=== PATIENT | female | born 1995 | race Caucasian/White ===

== ENCOUNTER 2016-07-26 09:18 | Emergency (ER) | payer BC, OTHER, MEDICAID ==
[2016-07-26] MEDS ORDERED: NAPROXEN 250 MG TAB As Ordered ONE (09:59)
[2016-07-26 10:01] LABS: CONTROL LINE UCG INT CTR LINE PRESENT
--- NOTE | 2016-07-26 10:33 | EDDOCDS ---
Physician Documentation [facility] Name: July Cooper Age: 21 yrs Sex: Female : 1995 Arrival Date: 07/26/2016 Time: 09:18 Bed PR Private MD: No Pcp Disposition: 07/26/16 10:17 Discharged to Home/Self Care. Impression: Candidiasis of vulva and vagina, Vaginitis, vulvitis and vulvovaginitis in diseases classified elsewhere - BV, Acute upper respiratory infections of multiple and unspecified sites. - Condition is Stable. - Discharge Instructions: Bacterial Vaginosis, Upper Respiratory Infection, Adult, Vaginitis, Monilial. - Prescriptions for tinidazole 500 mg Oral tablet - take 2 tablet by ORAL route once daily for 5 days; 10 tablet. Diflucan 150 mg Oral Tablet - take 1 tablet by ORAL route one time for 1 day; 1 tablet. Guaifenesin- DM 10-100 mg/5 mL Oral Liquid - take 5 milliliter by ORAL route every 4 hours As needed; 100 milliliter. - Medication Reconciliation, Local Pharmacy Hours form. - Follow up: Your [employer]; When: Call to arrange an appointment; Reason: Wound/Symptom Recheck, Recheck today's complaints, Worsening of conditions, Continuance of care. - Problem is chronic. - Symptoms are unchanged. Historical: - Allergies: no known allergies; - Home Meds: 1. clindamycin HCl 300 mg Oral cap 1 cap 2 times per day (Last dose: 07/25/2016) 2. Valtrex 500 mg Oral tab prn (Last dose: 07/25/2016) - PMHx: bacterial vaginosis; Herpes; - PSHx: none; - Social history: Smoking status: Patient uses tobacco products, current every day smoker. No barriers to communication noted, The patient speaks fluent South Korean. - Family history: Not pertinent. - : The pt / caregiver states he / she is not on anticoagulants. Home medication list is obtained from the patient. - Exposure Risk Screening:: None identified. 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 5 in. (165.10 cm) (R); Pain 01/05; 09:20 Body Mass Index 40.77 (111.13 kg, 165.10 cm) elp MDM: 09:31 Financial registration complete. lg 09:39 [facility] Payment Agreement was scanned into [employer] and attached to record. lg 09:40 Set up pelvic ordered. cc10 09:40 Undress patient appropriately for examination ordered. cc10 09:41 UA Ordered. EDMS 09:41 UCG- In Lab Ordered. EDMS 09:41 GC & Chlamydia Amplification Ordered. EDMS 09:41 Wet Prep Ordered. EDMS 09:50 Naproxen 500 mg PO once; administer with food or milk ordered. cc10 10:05 UCG- In Lab Reviewed. cc10 10:05 Wet Prep Reviewed. cc10 10:09 UA Reviewed. cc10 10:09 UCG- In Lab Reviewed. cc10 Administered Medications: 10:00 Drug: Naproxen 500 mg [naproxen 250 mg tablet (2 tabs)] Route: PO; hs1 Signatures: Dispatcher [employer] EDFL Romero Pritchard, Reg Reg lg Nancy Peters, RN RN jodiejErnestine Guzman RN RN hs1 Roshan Thomas PA-C PA-C cc10 The chart was reviewed and I authenticate all verbal orders and agree with the evaluation and treatment provided.Attachments: 09:39 [facility] Payment Agreement lg MTDD
--- NOTE | 2016-07-26 10:33 | EDDOCDS ---
Nurse's Notes [facility] Name: July Cooper Age: 21 yrs Sex: Female : 1995 Arrival Date: 07/26/2016 Time: 09:18 Bed PR Private MD: No Pcp Diagnosis: Candidiasis of vulva and vagina;Vaginitis, vulvitis and vulvovaginitis in diseases classified elsewhere-BV;Acute upper respiratory infections of multiple and unspecified sites Presentation: 07/26 09:22 Presenting complaint: Patient states: nasal congestion for past week, intermittent jjr pelvic pain for past week, dysuria with left low back discomfort. Adult Sepsis Screening: The patient does not have new or worsening altered mentation. Patient's respiratory rate is less than 22. Systolic blood pressure is greater than 100. Patient has a qSOFA score of 0- Negative Sepsis Screen. Suicide/Homicide risk assessment- the patient denies having any suicidal and/or homicidal ideations and does not present with any other emotional, behavioral or mental health complaints. Status: Patient is not a family service caseworker or dependent. Transition of care: patient was not received from another setting of care. 09:22 Acuity: LLUVIA Level 3 jjr 09:22 Method Of Arrival: Walkin/Carried/Asstd jjr Triage Assessment: 09:26 General: Appears in no apparent distress. Pain: Location: left low back and pelvis. HIV jjr screening NA for this visit Offered previously. 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 clindamycin HCl 300 mg Oral cap 1 cap 2 times per day (Last dose: 07/25/2016) 2. Valtrex 500 mg Oral tab prn (Last dose: 07/25/2016) - PMHx: bacterial vaginosis; Herpes; - PSHx: none; - Social history: Smoking status: Patient uses tobacco products, current every day smoker. No barriers to communication noted, The patient speaks fluent Lithuanian. - Family history: Not pertinent. - : The pt / caregiver states he / she is not on anticoagulants. Home medication list is obtained from the patient. - Exposure Risk Screening:: None identified. Screenin:29 Screening information is obtained from the patient. Fall risk: No risks identified. hs1 Assistance ADL's: requires no assistance with activities of daily living. Abuse/DV Screen: The patient / caregiver reports he/she is: not in a situation that causes fear, pain or injury. Nutritional screening: No deficits noted. Advance Directives: There is no active DNR order. home support is adequate. Assessment: 10:30 General: Appears in no apparent distress, Behavior is appropriate for age, cooperative. hs1 Respiratory: No deficits noted. Derm: Skin is pink, warm & dry. normal. Vital Signs: 09:20 BP 131 / 80; Pulse 88; Resp 18; Temp 99.1(O); Pulse Ox 100% on R/A; Weight 111.13 kg elp (R); Height 5 ft. 5 in. (165.10 cm) (R); Pain 7/10; 09:20 Body Mass Index 40.77 (111.13 kg, 165.10 cm) elp Vitals: 09:20 Log In Time: July 26, 2016 at 09:18. elp ED Course: 09:19 Patient visited by Rosie Simeon PCA. elp 09:19 No Pcp is Private Physician. elp 09:19 Patient moved to Waiting elp 09:21 Patient visited by Rosie Simeon PCA. elp 09:21 Patient moved to Pre RCE elp 09:24 Triage Initiated jjr 09:26 Patient moved to Triage 1 jjr 09:30 Roshan Thomas [facility] cc10 09:30 Yana Son MD is Attending Physician. cc10 09:30 Patient visited by Roshan Thomas PA-C. cc10 09:30 Patient visited by Roshan Thomas PA-C. cc10 09:39 [facility] Payment Agreement was scanned into [employer] and attached to record. lg 09:50 Wet Prep Sent. ct3 09:50 GC & Chlamydia Amplification Sent. ct3 09:50 UCG- In Lab Sent. ct3 09:50 UA Sent. ct3 10:00 Patient moved to TR3 hs1 10:11 Patient moved to PD2 / 27 hs1 10:11 Patient moved to PR1 / 25 hs1 10:17 Your Industrial Gas Service Helper is Referral Physician. cc10 10:32 The patient / caregiver is instructed regarding the plan of care and ED course. hs1 10:32 No IV's were initiated during this patient's visit. No procedures done that require hs1 assistance. Administered Medications: 10:00 Drug: Naproxen 500 mg [naproxen 250 mg tablet (2 tabs)] Route: PO; hs1 Order Results: Lab Order: UA; SPEC'M 07/26/16 09:50 Test: APPEARANCE, URINE; Value: CLOUDY; Range: CLEAR; Abnormal: Above high normal; Status: F Test: COLOR, URINE; Value: YELLOW; Range: YELLOW; Status: F Test: PH,URINE; Value: 5.0; Range: 5.0-9.0; Units: UNITS; Status: F Test: SPECIFIC GRAVITY URINE AUTO; Value: 1.020; Range: 1.002-1.035; Status: F Test: PROTEIN, URINE AUTO; Value: NEGATIVE; Range: NEGATIVE; Units: mg/dL; Status: F Test: GLUCOSE, URINE (UA) AUTO; Value: NEGATIVE; Range: NEGATIVE; Units: mg/dL; Status: F Test: KETONE, URINE AUTO; Value: NEGATIVE; Range: NEGATIVE; Units: mg/dL; Status: F Test: UROBILINOGEN, URINE AUTO; Value: 0.2; Range: 0.0-2.0; Units: mg/dL; Status: F Test: BILIRUBIN, URINE AUTO; Value: NEGATIVE; Range: NEGATIVE; Status: F Test: NITRITE, URINE AUTO; Value: NEGATIVE; Range: NEGATIVE; Status: F Test: LEUKOCYTE ESTERASE, URINE AUTO; Value: 3+; Range: NEGATIVE; Abnormal: Above high normal; Status: F Test: BLOOD, URINE BLOOD; Value: NEGATIVE; Range: NEGATIVE; Status: F Test: SPERM, URINE AUTO; Range: NONE; Status: I Test: WBC, URINE AUTO; Value: 4; Range: 0-3; Abnormal: Above high normal; Units: /HPF; Status: F Test: RBC, URINE AUTO; Value: 7; Range: 0-3; Abnormal: Above high normal; Units: /HPF; Status: F Test: BACTERIA, URINE AUTO; Value: 1+; Range: NEGATIVE; Abnormal: Above high normal; Status: F Test: SQUAMOUS EPITHELIAL CELL UR AU; Value: 33; Range: 0-6; Units: /HPF; Status: F Test: MUCUS, URINE; Value: SMALL; Range: NEGATIVE; Status: F Test: HYALINE CAST, URINE AUTO; Value: 0; Range: 0-1; Units: /LPF; Status: F Lab Order: UCG- In Lab; SPEC'M 07/26/16 09:50 Test: URINE PREG TEST; Value: NEGATIVE; Range: NEGATIVE; Status: F Lab Order: Wet Prep; SPEC'M 07/26/16 09:50 Test: WET PREP; Value: WET PREP RESULT; Status: F Test: WET PREP; Value: MANY CLUE CELLS PRESENT; Status: F Test: WET PREP; Value: FEW RBC; Status: F Test: WET PREP; Value: MANY SHORT RODS PRESENT; Status: F Outcome: 10:17 Discharge ordered by Provider. cc10 10:30 Discharge Assessment: Patient awake, alert and oriented x 3. No cognitive and/or hs1 functional deficits noted. Patient verbalized understanding of disposition instructions. patient administered narcotics - no. The following High Risk Discharge criteria are identified: None. Discharged to home ambulatory. Condition: stable. Discharge instructions given to patient, Instructed on discharge instructions, follow up and referral plans. medication usage, Demonstrated understanding of instructions, medications, Pt was receptive of discharge instructions/ teaching. Prescriptions given X 3. No special radiology studies were completed. Property sent home with patient. 10:32 Patient left the ED. hs1 Signatures: Romero Pritchard, Clint Reg lg Nancy Peters, Ernestine Winslow RN, RN RN hs1 Alayna Page, SAND SYSTEM OPERATOR SAND SYSTEM OPERATOR ct3 Rosie Simeon, SAND SYSTEM OPERATOR SAND SYSTEM OPERATOR elp Roshan Thomas PANancy PAKenyaC cc10 MTDD
--- NOTE | 2016-07-28 11:33 | EDDOCDS ---
Nurse's Notes [facility] Name: July Cooper Age: 21 yrs Sex: Female : 1995 Arrival Date: 07/26/2016 Time: 09:18 Bed PR Private MD: No Pcp Diagnosis: Candidiasis of vulva and vagina;Vaginitis, vulvitis and vulvovaginitis in diseases classified elsewhere-BV;Acute upper respiratory infections of multiple and unspecified sites Presentation: 07/26 09:22 Presenting complaint: Patient states: nasal congestion for past week, intermittent jjr pelvic pain for past week, dysuria with left low back discomfort. Adult Sepsis Screening: The patient does not have new or worsening altered mentation. Patient's respiratory rate is less than 22. Systolic blood pressure is greater than 100. Patient has a qSOFA score of 0- Negative Sepsis Screen. Suicide/Homicide risk assessment- the patient denies having any suicidal and/or homicidal ideations and does not present with any other emotional, behavioral or mental health complaints. Status: Patient is not a food service associate or dependent. Transition of care: patient was not received from another setting of care. 09:22 Acuity: LLUVIA Level 3 jjr 09:22 Method Of Arrival: Walkin/Carried/Asstd jjr Triage Assessment: 09:26 General: Appears in no apparent distress. Pain: Location: left low back and pelvis. HIV jjr screening NA for this visit Offered previously. 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 clindamycin HCl 300 mg Oral cap 1 cap 2 times per day (Last dose: 07/25/2016) 2. Valtrex 500 mg Oral tab prn (Last dose: 07/25/2016) - PMHx: bacterial vaginosis; Herpes; - PSHx: none; - Social history: Smoking status: Patient uses tobacco products, current every day smoker. No barriers to communication noted, The patient speaks fluent Nepali. - Family history: Not pertinent. - : The pt / caregiver states he / she is not on anticoagulants. Home medication list is obtained from the patient. - Exposure Risk Screening:: None identified. Screenin:29 Screening information is obtained from the patient. Fall risk: No risks identified. hs1 Assistance ADL's: requires no assistance with activities of daily living. Abuse/DV Screen: The patient / caregiver reports he/she is: not in a situation that causes fear, pain or injury. Nutritional screening: No deficits noted. Advance Directives: There is no active DNR order. home support is adequate. Assessment: 10:30 General: Appears in no apparent distress, Behavior is appropriate for age, cooperative. hs1 Respiratory: No deficits noted. Derm: Skin is pink, warm & dry. normal. Vital Signs: 09:20 BP 131 / 80; Pulse 88; Resp 18; Temp 99.1(O); Pulse Ox 100% on R/A; Weight 111.13 kg elp (R); Height 5 ft. 5 in. (165.10 cm) (R); Pain 7/10; 09:20 Body Mass Index 40.77 (111.13 kg, 165.10 cm) elp Vitals: 09:20 Log In Time: July 26, 2016 at 09:18. elp ED Course: 09:19 Patient visited by Rosie Simeon PCA. elp 09:19 No Pcp is Private Physician. elp 09:19 Patient moved to Waiting elp 09:21 Patient visited by Rosie Simeon PCA. elp 09:21 Patient moved to Pre RCE elp 09:24 Triage Initiated jjr 09:26 Patient moved to Triage 1 jjr 09:30 [facility] cc[facility] 09:30 Yana Son MD is Attending Physician. cc10 09:30 Patient visited by Roshan Thomas PA-C. cc10 09:30 Patient visited by Roshan Thomas PA-C. cc10 09:39 [facility] Payment Agreement was scanned into [employer] and attached to record. lg 09:50 Wet Prep Sent. ct3 09:50 GC & Chlamydia Amplification Sent. ct3 09:50 UCG- In Lab Sent. ct3 09:50 UA Sent. ct3 10:00 Patient moved to TR3 hs1 10:11 Patient moved to PD2 / 27 hs1 10:11 Patient moved to PR1 / 25 hs1 10:17 Your Trailer Assembler is Referral Physician. cc10 10:32 The patient / caregiver is instructed regarding the plan of care and ED course. hs1 10:32 No IV's were initiated during this patient's visit. No procedures done that require hs1 assistance. 11:09 T-Sheet-- Draft Copy was scanned into [employer] and attached to record. gb 07/27 12:37 Lab / Xray Callback was scanned into [employer] and attached to record. deg Administered Medications: 07/26 10:00 Drug: Naproxen 500 mg [naproxen 250 mg tablet (2 tabs)] Route: PO; hs1 Order Results: Lab Order: UA; SPEC'M 07/26/16 09:50 Test: APPEARANCE, URINE; Value: CLOUDY; Range: CLEAR; Abnormal: Above high normal; Status: F Test: COLOR, URINE; Value: YELLOW; Range: YELLOW; Status: F Test: PH,URINE; Value: 5.0; Range: 5.0-9.0; Units: UNITS; Status: F Test: SPECIFIC GRAVITY URINE AUTO; Value: 1.020; Range: 1.002-1.035; Status: F Test: PROTEIN, URINE AUTO; Value: NEGATIVE; Range: NEGATIVE; Units: mg/dL; Status: F Test: GLUCOSE, URINE (UA) AUTO; Value: NEGATIVE; Range: NEGATIVE; Units: mg/dL; Status: F Test: KETONE, URINE AUTO; Value: NEGATIVE; Range: NEGATIVE; Units: mg/dL; Status: F Test: UROBILINOGEN, URINE AUTO; Value: 0.2; Range: 0.0-2.0; Units: mg/dL; Status: F Test: BILIRUBIN, URINE AUTO; Value: NEGATIVE; Range: NEGATIVE; Status: F Test: NITRITE, URINE AUTO; Value: NEGATIVE; Range: NEGATIVE; Status: F Test: LEUKOCYTE ESTERASE, URINE AUTO; Value: 3+; Range: NEGATIVE; Abnormal: Above high normal; Status: F Test: BLOOD, URINE BLOOD; Value: NEGATIVE; Range: NEGATIVE; Status: F Test: SPERM, URINE AUTO; Range: NONE; Status: I Test: WBC, URINE AUTO; Value: 4; Range: 0-3; Abnormal: Above high normal; Units: /HPF; Status: F Test: RBC, URINE AUTO; Value: 7; Range: 0-3; Abnormal: Above high normal; Units: /HPF; Status: F Test: BACTERIA, URINE AUTO; Value: 1+; Range: NEGATIVE; Abnormal: Above high normal; Status: F Test: SQUAMOUS EPITHELIAL CELL UR AU; Value: 33; Range: 0-6; Units: /HPF; Status: F Test: MUCUS, URINE; Value: SMALL; Range: NEGATIVE; Status: F Test: HYALINE CAST, URINE AUTO; Value: 0; Range: 0-1; Units: /LPF; Status: F Lab Order: UCG- In Lab; SPEC'M 07/26/16 09:50 Test: URINE PREG TEST; Value: NEGATIVE; Range: NEGATIVE; Status: F Lab Order: GC & Chlamydia Amplification; SPEC'M 07/26/16 09:50 Test: CHLAMYDIA DNA AMPLIFICATION; Value: NEGATIVE; Range: NEGATIVE; Status: F Test: GC DNA AMPLIFICATION; Value: NEGATIVE; Range: NEGATIVE; Status: F Lab Order: Wet Prep; SPEC'M 07/26/16 09:50 Test: WET PREP; Value: WET PREP RESULT; Status: F Test: WET PREP; Value: MANY CLUE CELLS PRESENT; Status: F Test: WET PREP; Value: FEW RBC; Status: F Test: WET PREP; Value: MANY SHORT RODS PRESENT; Status: F Outcome: 10:17 Discharge ordered by Provider. cc10 10:30 Discharge Assessment: Patient awake, alert and oriented x 3. No cognitive and/or hs1 functional deficits noted. Patient verbalized understanding of disposition instructions. patient administered narcotics - no. The following High Risk Discharge criteria are identified: None. Discharged to home ambulatory. Condition: stable. Discharge instructions given to patient, Instructed on discharge instructions, follow up and referral plans. medication usage, Demonstrated understanding of instructions, medications, Pt was receptive of discharge instructions/ teaching. Prescriptions given X 3. No special radiology studies were completed. Property sent home with patient. 10:32 Patient left the ED. hs1 Signatures: Jaquelin Duff, Senior Systems Architect Unit deg Claire Ohara, Reg Reg gb Romero Pritchard, Reg Reg lg Nancy Peters RN RN jjr Sherrill, Hannah, RN RN hs1 Page, Alayna, SONOSCOPE OPERATOR SONOSCOPE OPERATOR ct3 Patchen, Rosie, SONOSCOPE OPERATOR SONOSCOPE OPERATOR elp Martha, Roshan, PA-C PA-C cc10 Chart Complete MTDD
--- NOTE | 2016-07-28 11:33 | EDDOCDS ---
Physician Documentation [facility] Name: July Cooper Age: 21 yrs Sex: Female : 1995 Arrival Date: 07/26/2016 Time: 09:18 Bed PR Private MD: No Pcp Disposition: 07/26/16 10:17 Discharged to Home/Self Care. Impression: Candidiasis of vulva and vagina, Vaginitis, vulvitis and vulvovaginitis in diseases classified elsewhere - BV, Acute upper respiratory infections of multiple and unspecified sites. - Condition is Stable. - Discharge Instructions: Bacterial Vaginosis, Upper Respiratory Infection, Adult, Vaginitis, Monilial. - Prescriptions for tinidazole 500 mg Oral tablet - take 2 tablet by ORAL route once daily for 5 days; 10 tablet. Diflucan 150 mg Oral Tablet - take 1 tablet by ORAL route one time for 1 day; 1 tablet. Guaifenesin- DM 10-100 mg/5 mL Oral Liquid - take 5 milliliter by ORAL route every 4 hours As needed; 100 milliliter. - Medication Reconciliation, Local Pharmacy Hours form. - Follow up: Your [employer]; When: Call to arrange an appointment; Reason: Wound/Symptom Recheck, Recheck today's complaints, Worsening of conditions, Continuance of care. - Problem is chronic. - Symptoms are unchanged. Historical: - Allergies: no known allergies; - Home Meds: 1. clindamycin HCl 300 mg Oral cap 1 cap 2 times per day (Last dose: 07/25/2016) 2. Valtrex 500 mg Oral tab prn (Last dose: 07/25/2016) - PMHx: bacterial vaginosis; Herpes; - PSHx: none; - Social history: Smoking status: Patient uses tobacco products, current every day smoker. No barriers to communication noted, The patient speaks fluent Chadian. - Family history: Not pertinent. - : The pt / caregiver states he / she is not on anticoagulants. Home medication list is obtained from the patient. - Exposure Risk Screening:: None identified. 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 5 in. (165.10 cm) (R); Pain 01/05; 09:20 Body Mass Index 40.77 (111.13 kg, 165.10 cm) elp MDM: 09:31 Financial registration complete. lg 09:39 [facility] Payment Agreement was scanned into [employer] and attached to record. lg 09:40 Set up pelvic ordered. cc10 09:40 Undress patient appropriately for examination ordered. cc10 09:41 UA Ordered. EDMS 09:41 UCG- In Lab Ordered. EDMS 09:41 GC & Chlamydia Amplification Ordered. EDMS 09:41 Wet Prep Ordered. EDMS 09:50 Naproxen 500 mg PO once; administer with food or milk ordered. cc10 10:05 UCG- In Lab Reviewed. cc10 10:05 Wet Prep Reviewed. cc10 10:09 UA Reviewed. cc10 10:09 UCG- In Lab Reviewed. cc10 11:09 T-Sheet-- Draft Copy was scanned into [employer] and attached to record. gb 07/27 12:37 Lab / Xray Callback was scanned into [employer] and attached to record. deg Administered Medications: 07/26 10:00 Drug: Naproxen 500 mg [naproxen 250 mg tablet (2 tabs)] Route: PO; hs1 Signatures: Dispatcher [employer] EDJaquelin Garcia, Stock Analyst Unit deg Claire Ohara, Reg Reg gb Romero Pritchard, Reg Reg lg Nancy Peters RN RN jjr Sherrill, Hannah, RN RN hs1 Roshan Thomas PA-C PANancy cc10 The chart was reviewed and I authenticate all verbal orders and agree with the evaluation and treatment provided.Attachments: :39 [facility] Payment Agreement lg 11:09 T-Sheet-- Draft Copy gb Chart Complete MTDD
--- NOTE | 2016-07-28 11:33 | EDDOCDS ---
Physician Documentation [facility] Name: July Cooper Age: 21 yrs Sex: Female : 1995 Arrival Date: 07/26/2016 Time: 09:18 Bed PR Private MD: No Pcp Disposition: 07/26/16 10:17 Discharged to Home/Self Care. Impression: Candidiasis of vulva and vagina, Vaginitis, vulvitis and vulvovaginitis in diseases classified elsewhere - BV, Acute upper respiratory infections of multiple and unspecified sites. - Condition is Stable. - Discharge Instructions: Bacterial Vaginosis, Upper Respiratory Infection, Adult, Vaginitis, Monilial. - Prescriptions for tinidazole 500 mg Oral tablet - take 2 tablet by ORAL route once daily for 5 days; 10 tablet. Diflucan 150 mg Oral Tablet - take 1 tablet by ORAL route one time for 1 day; 1 tablet. Guaifenesin- DM 10-100 mg/5 mL Oral Liquid - take 5 milliliter by ORAL route every 4 hours As needed; 100 milliliter. - Medication Reconciliation, Local Pharmacy Hours form. 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 - Problem is chronic. - Symptoms are unchanged. Historical: - Allergies: no known allergies; - Home Meds: 1. clindamycin HCl 300 mg Oral cap 1 cap 2 times per day (Last dose: 07/25/2016) 2. Valtrex 500 mg Oral tab prn (Last dose: 07/25/2016) - PMHx: bacterial vaginosis; Herpes; - PSHx: none; - Social history: Smoking status: Patient uses tobacco products, current every day smoker. No barriers to communication noted, The patient speaks fluent [place]. - Family history: Not pertinent. - : The pt / caregiver states he / she is not on anticoagulants. Home medication list is obtained from the patient. - Exposure Risk Screening:: None identified. 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 5 in. (165.10 cm) (R); Pain 01/05; 09:20 Body Mass Index 40.77 (111.13 kg, 165.10 cm) elp MDM: 09:31 Financial registration complete. lg 09:39 [facility] Payment Agreement was scanned into [facility] and attached to record. lg 09:40 Set up pelvic ordered. cc10 09:40 Undress patient appropriately for examination ordered. cc10 09:41 UA Ordered. EDMS 09:41 UCG- In Lab Ordered. EDMS 09:41 GC & Chlamydia Amplification Ordered. EDMS 09:41 Wet Prep Ordered. EDMS 09:50 Naproxen 500 mg PO once; administer with food or milk ordered. cc10 10:05 UCG- In Lab Reviewed. cc10 10:05 Wet Prep Reviewed. cc10 10:09 UA Reviewed. cc10 10:09 UCG- In Lab Reviewed. cc10 11:09 T-Sheet-- Draft Copy was scanned into [facility] and attached to record. gb 07/27 12:37 Lab / Xray Callback was scanned into [facility] and attached to record. deg Administered Medications: 07/26 10:00 Drug: Naproxen 500 mg [naproxen 250 mg tablet (2 tabs)] Route: PO; hs1 Signatures: Dispatcher [employer] EDJaquelin Garcia, Water Quality Tester Unit deg Claire Ohara, Reg Reg gb Romero Pritchard, Reg Reg lg Nancy Peters RN RN jjr Sherrill, Hannah, RN RN hs1 Roshan Thomas PA-C PANancy cc10 The chart was reviewed and I authenticate all verbal orders and agree with the evaluation and treatment provided.Attachments: :39 [facility] Payment Agreement lg 11:09 T-Sheet-- Draft Copy gb Chart Complete MTDD
== END 2016-07-26 10:32 | disposition home or self-care (01) ==
LOC: M ED 09:18
DX: B37.3 Candidiasis of vulva and vagina (principal); J06.9 Acute upper respiratory infection, unspecified; B00.9 Herpesviral infection, unspecified; F17.210 Nicotine dependence, cigarettes, uncomplicated; Z79.899 Other long term (current) drug therapy

== ENCOUNTER → 2016-07-26 | Outpatient (CLI) | payer BC, OTHER ==
[~2016-07-26] MED LIST: ALEV220T26 PO; CIPR-250 PO; FLON0.054; MECL12.575 PO; META0.52 PO; MIRA3350 PO; ONDA4TAB6 PO; PERC5TAB6 PO; SENO8.6T10 PO; [UNRECOGNIZED DRUG - CODE] PO; [UNRECOGNIZED DRUG - CODE] PO
[2016-07-28 14:36] LABS: HIV SCRN NEGATIVE (NEGATIVE)
[2016-07-28 14:37] LABS: CONTROL LINE INT CTR LINE PRESENT; HIV SCRN1 NEGATIVE (NEGATIVE)
== END | disposition home or self-care (01) ==
LOC: M LAB 09:00
PROVIDERS: ATTEND Nurse Practitioner Women's Health
DX: Z11.3 Encounter for screening for infections with a predominantly sexual mode of transmission (principal)

== ENCOUNTER → 2017-04-02 | Outpatient (REF) | payer OTHER, MEDICAID ==
[~2017-04-02] MED LIST changes: +PERC5TAB12 PO; -PERC5TAB6 PO
== END ==
LOC: M LAB REF 12:11
PROVIDERS: ATTEND Physician Assistant Medical
DX: R30.0 Dysuria (principal); Z20.2 Contact with and (suspected) exposure to infections with a predominantly sexual mode of transmission

== ENCOUNTER 2017-05-17 00:50 | Emergency (ER) | payer BC, OTHER, MEDICAID ==
[~2017-05-17] VITALS: Ht 165.1 cm; Wt 109.1 kg
[2017-05-17] MEDS ORDERED: SERT25TA88 (01:03)
[2017-05-17] MEDS ORDERED: NORCO, ANEXSIA 5/325MG TABLET (HYDROcodone/ACETAMINOPHEN) PO ONE (01:45)
[2017-05-17] MEDS ORDERED: ONDANSETRON 4 MG ORAL DISINTEGRATING TAB (S0181) PO ONE (01:45)
[2017-05-17 02:46] VITALS: BP 130/70
== END 2017-05-17 03:03 | disposition home or self-care (01) ==
LOC: M ED 00:50
DX: S01.91XA Laceration without foreign body of unspecified part of head, initial encounter (principal); W10.9XXA Fall (on) (from) unspecified stairs and steps, initial encounter; Y92.009 Unspecified place in unspecified non-institutional (private) residence as the place of occurrence of the external cause; Y93.89 Activity, other specified; Y99.8 Other external cause status

== ENCOUNTER → 2017-06-16 | Outpatient (REF) | payer BC, OTHER ==
[~2017-06-16] MED LIST changes: +SERT25TA88
== END ==
LOC: M LAB REF 19:18
PROVIDERS: ATTEND Physician Assistant
DX: R30.0 Dysuria (principal)

== ENCOUNTER → 2017-07-14 | Outpatient (REF) | payer BC, OTHER, MEDICAID ==
[2017-07-14 21:12] LABS: APPEARANCE, URINE HAZY (CLEAR); BACTERIA, URINE AUTO NEGATIVE (NEGATIVE); BILIRUBIN, URINE AUTO NEGATIVE (NEGATIVE); BLOOD, URINE BLOOD NEGATIVE (NEGATIVE); COLOR, URINE YELLOW (YELLOW); GLUCOSE, URINE (UA) AUTO NEGATIVE (NEGATIVE); KETONE, URINE AUTO NEGATIVE (NEGATIVE); LEUKOCYTE ESTERASE, URINE AUTO TRACE (NEGATIVE); NITRITE, URINE AUTO NEGATIVE (NEGATIVE); PROTEIN, URINE AUTO NEGATIVE (NEGATIVE); RBC, URINE AUTO 3 /HPF (0-3); SPECIFIC GRAVITY URINE AUTO 1.023 (1.002-1.035); SQUAMOUS EPITHELIAL CELL UR AU 2 /HPF (0-6); WBC, URINE AUTO 1 /HPF (0-3)
[2017-07-14 23:08] LABS: CHLAMYDIA DNA AMPLIFICATION NEGATIVE (NEGATIVE); GC DNA AMPLIFICATION NEGATIVE (NEGATIVE)
== END ==
LOC: M LAB REF 20:14
DX: N39.0 Urinary tract infection, site not specified (principal)
CPT/HCPCS: 81001

== ENCOUNTER → 2017-07-29 | Outpatient (REF) | payer BC, OTHER, MEDICAID ==
[2017-07-29 21:29] LABS: CHLAMYDIA DNA AMPLIFICATION NEGATIVE (NEGATIVE); GC DNA AMPLIFICATION NEGATIVE (NEGATIVE)
== END ==
LOC: M LAB REF 17:03
DX: Z20.2 Contact with and (suspected) exposure to infections with a predominantly sexual mode of transmission (principal)

== ENCOUNTER 2017-08-13 02:10 | Emergency (ER) | payer BC, OTHER, MEDICAID | END 2017-08-13 02:50 | disposition left against medical advice (07) | LOC: M ED 02:10 | DX: Z53.21 Procedure and treatment not carried out due to patient leaving prior to being seen by health care provider (principal) ==

== ENCOUNTER 2017-08-14 12:53 | Emergency (ER) | payer BC, OTHER, MEDICAID | END 2017-08-14 15:54 | disposition home or self-care (01) | LOC: M ED 12:53 | DX: F07.81 Postconcussional syndrome (principal); W10.9XXA Fall (on) (from) unspecified stairs and steps, initial encounter; Y92.009 Unspecified place in unspecified non-institutional (private) residence as the place of occurrence of the external cause; J45.909 Unspecified asthma, uncomplicated; K21.9 Gastro-esophageal reflux disease without esophagitis; F90.9 Attention-deficit hyperactivity disorder, unspecified type; F17.210 Nicotine dependence, cigarettes, uncomplicated; Z79.899 Other long term (current) drug therapy | CPT/HCPCS: 70450 ==

== ENCOUNTER → 2018-02-03 | Outpatient (REF) | payer BC, OTHER, MEDICAID ==
[2018-02-03 23:17] LABS: CHLAMYDIA DNA AMPLIFICATION NEGATIVE (NEGATIVE); GC DNA AMPLIFICATION NEGATIVE (NEGATIVE)
== END ==
LOC: M LAB REF 21:26
DX: Z20.2 Contact with and (suspected) exposure to infections with a predominantly sexual mode of transmission (principal)

== ENCOUNTER → 2018-03-31 | Outpatient (REF) | payer OTHER, MEDICAID ==
[2018-03-31 17:03] LABS: APPEARANCE, URINE HAZY (CLEAR); BACTERIA, URINE AUTO NEGATIVE (NEGATIVE); BILIRUBIN, URINE AUTO NEGATIVE (NEGATIVE); BLOOD, URINE BLOOD NEGATIVE (NEGATIVE); COLOR, URINE YELLOW (YELLOW); GLUCOSE, URINE (UA) AUTO NEGATIVE (NEGATIVE); KETONE, URINE AUTO TRACE mg/dL (NEGATIVE); LEUKOCYTE ESTERASE, URINE AUTO NEGATIVE (NEGATIVE); MUCUS, URINE SMALL (NEGATIVE); NITRITE, URINE AUTO NEGATIVE (NEGATIVE); PROTEIN, URINE AUTO NEGATIVE (NEGATIVE); RBC, URINE AUTO 1 /HPF (0-3); SPECIFIC GRAVITY URINE AUTO 1.027 (1.002-1.035); SQUAMOUS EPITHELIAL CELL UR AU 7 /HPF (0-6); WBC, URINE AUTO 2 /HPF (0-3)
[2018-03-31 22:57] LABS: CHLAMYDIA DNA AMPLIFICATION NEGATIVE (NEGATIVE); GC DNA AMPLIFICATION NEGATIVE (NEGATIVE)
== END ==
LOC: M LAB REF 15:20
DX: R30.0 Dysuria (principal)

== ENCOUNTER 2018-05-28 00:11 | Emergency (ER) | payer BC, OTHER, MEDICAID | END 2018-05-28 00:50 | disposition home or self-care (01) | LOC: M ED 00:11 | DX: B36.0 Pityriasis versicolor (principal); F17.210 Nicotine dependence, cigarettes, uncomplicated | CPT/HCPCS: 99282 ==

== ENCOUNTER 2018-06-07 19:20 | Emergency (ER) | payer BC, OTHER, MEDICAID | END 2018-06-07 19:34 | disposition left against medical advice (07) | LOC: M ED 19:20 | DX: Z53.20 Procedure and treatment not carried out because of patient's decision for unspecified reasons (principal) ==

== ENCOUNTER → 2018-08-30 | Outpatient (REF) | payer OTHER, MEDICAID ==
[~2018-08-30] MED LIST changes: +DULO1CAP; +IBUP-1022 PO; +SELE25SHA TOP; -SERT25TA88; +SERT25TA88 PO; +ZOFR4TAB14 PO
[2018-08-30 23:06] LABS: CHLAMYDIA DNA AMPLIFICATION NEGATIVE (NEGATIVE); GC DNA AMPLIFICATION NEGATIVE (NEGATIVE)
== END ==
LOC: M LAB REF 12:54
PROVIDERS: ATTEND Physician Assistant Medical
DX: Z11.3 Encounter for screening for infections with a predominantly sexual mode of transmission (principal)

== ENCOUNTER → 2018-09-10 | Outpatient (REF) | payer MEDICAID ==
[2018-09-10 22:33] LABS: INFLUENZA A AMPLIFICATION NEGATIVE (NEGATIVE); INFLUENZA B AMPLIFICATION NEGATIVE (NEGATIVE)
== END ==
LOC: M LAB REF 12:54
PROVIDERS: ATTEND Physician Assistant
DX: R50.9 Fever, unspecified (principal)

== ENCOUNTER → 2019-02-07 | Outpatient (REF) | payer OTHER, MEDICAID ==
[~2019-02-07] MED LIST changes: -DULO1CAP; +DULO1CAP4
[2019-02-07 18:07] LABS: APPEARANCE, URINE CLOUDY (CLEAR); BACTERIA, URINE AUTO 3+ (NEGATIVE); BILIRUBIN, URINE AUTO NEGATIVE (NEGATIVE); BLOOD, URINE BLOOD 1+ (NEGATIVE); COLOR, URINE YELLOW (YELLOW); GLUCOSE, URINE (UA) AUTO NEGATIVE (NEGATIVE); KETONE, URINE AUTO NEGATIVE (NEGATIVE); LEUKOCYTE ESTERASE, URINE AUTO NEGATIVE (NEGATIVE); MUCUS, URINE SMALL (NEGATIVE); NITRITE, URINE AUTO POSITIVE (NEGATIVE); PROTEIN, URINE AUTO NEGATIVE (NEGATIVE); RBC, URINE AUTO 4 /HPF (0-3); SQUAMOUS EPITHELIAL CELL UR AU 11 /HPF (0-6); UROBILINOGEN, URINE AUTO 0.2 mg/dL (0.0-2.0); WBC, URINE AUTO 2 /HPF (0-3)
[2019-02-07 20:07] LABS: CHLAMYDIA DNA AMPLIFICATION NEGATIVE (NEGATIVE); GC DNA AMPLIFICATION NEGATIVE (NEGATIVE)
== END ==
LOC: M LAB REF 17:12
PROVIDERS: ATTEND Physician Assistant Medical
DX: N39.0 Urinary tract infection, site not specified (principal)

== ENCOUNTER 2019-03-29 20:50 | Emergency (ER) | payer OTHER, MEDICAID ==
[~2019-03-29] VITALS: Ht 165.1 cm; Wt 100.0 kg
[2019-03-29 20:50] VITALS: BP 122/73
== END 2019-03-29 21:43 | disposition left against medical advice (07) ==
LOC: M ED 20:50
DX: Z53.21 Procedure and treatment not carried out due to patient leaving prior to being seen by health care provider (principal)

== ENCOUNTER → 2019-09-18 | Outpatient (REF) | payer OTHER, MEDICAID ==
[~2019-09-18] MED LIST changes: -MECL12.575 PO; +MECL12.589 PO; +SERT25TA21 PO; -SERT25TA88 PO
[2019-09-18 18:00] LABS: APPEARANCE, URINE HAZY (CLEAR); BACTERIA, URINE AUTO 3+ (NEGATIVE); BILIRUBIN, URINE AUTO NEGATIVE (NEGATIVE); BLOOD, URINE BLOOD NEGATIVE (NEGATIVE); COLOR, URINE YELLOW (YELLOW); GLUCOSE, URINE (UA) AUTO NEGATIVE (NEGATIVE); KETONE, URINE AUTO NEGATIVE (NEGATIVE); LEUKOCYTE ESTERASE, URINE AUTO NEGATIVE (NEGATIVE); MUCUS, URINE SMALL (NEGATIVE); NITRITE, URINE AUTO POSITIVE (NEGATIVE); PROTEIN, URINE AUTO NEGATIVE (NEGATIVE); RBC, URINE AUTO 1 /HPF (0-3); SPECIFIC GRAVITY URINE AUTO 1.026 (1.002-1.035); SQUAMOUS EPITHELIAL CELL UR AU 5 /HPF (0-6); UROBILINOGEN, URINE AUTO 0.2 mg/dL (0.0-2.0); WBC, URINE AUTO 3 /HPF (0-3)
[2019-09-18 19:17] LABS: CHLAMYDIA DNA AMPLIFICATION NEGATIVE (NEGATIVE); GC DNA AMPLIFICATION NEGATIVE (NEGATIVE)
== END ==
LOC: M LAB REF 17:14
PROVIDERS: ATTEND Physician Assistant Medical
DX: Z20.2 Contact with and (suspected) exposure to infections with a predominantly sexual mode of transmission (principal)

== ENCOUNTER → 2019-10-23 | Outpatient (REF) | payer OTHER, MEDICAID ==
[2019-10-23 23:03] LABS: CHLAMYDIA DNA AMPLIFICATION NEGATIVE (NEGATIVE); GC DNA AMPLIFICATION NEGATIVE (NEGATIVE)
== END ==
LOC: M LAB REF 20:40
PROVIDERS: ATTEND Physician Assistant
DX: R30.0 Dysuria (principal)

== ENCOUNTER 2019-11-18 14:07 | Inpatient (IN) | payer BC, OTHER, MEDICAID ==
[~2019-11-18] VITALS: Ht 165.1 cm; Wt 98.1 kg
[~2019-11-18 14:07] MED LIST changes: -NITR100C2; -PERI0.126 SSP; -PHEN-501; -PROBCAP14 PO
[2019-11-18] MEDS ORDERED: PHEN-501 (14:14)
[2019-11-18] MEDS ORDERED: NITR100C2 (14:14)
[2019-11-18] MEDS ORDERED: NS 1,000 ML IV ONE ×3 (14:45→16:00)
[2019-11-18 15:19] LABS: BASO # 0.1 10^3/uL (0.0-0.2); BASO % 0.3 % (0.0-1.0); EOS % 0.1 % (0.0-3.0); HEMATOCRIT 39.7 % (36.0-47.0); HEMOGLOBIN 13.4 g/dl (12.0-15.5); LYMPH # 1.9 10^3/uL (1.5-5.0); LYMPH % 9.5 % (24.0-44.0); MEAN CORPUSCULAR HEMOGLOBIN 30.7 pg (27.0-33.0); MEAN CORPUSCULAR HGB CONC 33.8 g/dl (32.0-36.5); MEAN CORPUSCULAR VOLUME 90.8 fl (80.0-96.0); MONO # 1.4 10^3/uL (0.0-0.8); MONO % 7.1 % (0.0-5.0); NEUTROPHILS # 16.3 10^3/uL (1.5-8.5); PLATELET COUNT, AUTOMATED 225 10^3/uL (150-450); RED BLOOD COUNT 4.37 10^6/uL (4.00-5.40); WHITE BLOOD COUNT 19.8 10^3/uL (4.0-10.0)
[2019-11-18 15:41] LABS: ALBUMIN 3.7 GM/DL (3.2-5.2); BILIRUBIN,DIRECT 0.3 MG/DL (0.0-0.2); BILIRUBIN,TOTAL 0.9 MG/DL (0.2-1.0); TOTAL PROTEIN 7.1 GM/DL (6.4-8.2)
--- NOTE | 2019-11-18 15:47 | ECGEPIP ---
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
[2019-11-18] MEDS ORDERED: cefTRIAXone SOD 1 GM in D5W MINI-BAG PLUS 50 ML IV ONE (16:00)
--- NOTE | 2019-11-18 16:09 | REP ---
CT ABDOMEN AND PELVIS WITHOUT CONTRAST: CT abdomen and pelvis performed without oral or IV contrast. Sequential coronal reconstruction images are performed. Visualized lung bases demonstrate no infiltrate. Liver, spleen, adrenals and pancreas appear unremarkable. There is no hydroureteronephrosis. No renal, ureteral, or bladder calculus is seen. There appears to be subtle perinephric stranding on the right suggesting right-sided pyelonephrosis. The abdominal aorta is normal in caliber with no aneurysm. There is no evidence of adenopathy, free air or free fluid. No bowel wall thickening is seen. The appendix is normal. No pelvic mass is seen. Urinary bladder appears grossly unremarkable. IMPRESSION: No evidence of appendicitis. No renal , ureteral or bladder calculus and no hydroureteronephrosis. There appears to be subtle perinephric stranding of fat on the right suggesting right-sided pyelonephritis. Electronically Signed by Óscar Diaz MD 11/18/2019 04:12 P
[2019-11-18] MEDS ORDERED: PERI0.126 SSP (16:10)
[2019-11-18] MEDS ORDERED: PROBCAP14 PO (16:10)
[2019-11-18] MEDS ORDERED: fentaNYL 100 MCG/2 ML INJECTION (J3010) IV PRN (16:15)
[2019-11-18] MEDS ORDERED: MAALOX 30 ML SUSP *UDC PO PRN (17:00)
[2019-11-18] MEDS ORDERED: KETOROLAC 30 MG/ML 1ML VIAL IV PRN (17:00)
[2019-11-18] MEDS ORDERED: NS 1,000 ML IV SCH (17:00)
[2019-11-18] MEDS ORDERED: MOM 30ML SUSPENSION UDC PO PRN (17:00)
[2019-11-18] MEDS ORDERED: ACETAMINOPHEN 500 MG TAB PO PRN (17:15)
[2019-11-18] MEDS ORDERED: hydrOXYzine 25 MG TAB PO PRN (17:15)
--- NOTE | 2019-11-18 17:20 | HPEPDOC ---
General Date of Admission 11/18/19 Date of Service: November 18, 2019 Chief Complaint The patient is a 24-year-old female admitted with a reason for visit of Med Reaction. Source: Patient History of Present Illness 24 year old female with PMH of asthma as a child ADHD, anxiety has been having severe back pain for the past 2 days. She went to the urgent care today and had UA done which was dirty and was prescribed nitrofurantoin and pyridium. She took both the meds 1 each and after 30 mins started having diaphoresis, tingling of feet and right hand, felt like she was choking and could not swallow, racing heart rate felt she was having an allergic reaction so came to the ED for evaluation for drug reaction. She was very anxious as her mother had an allergic reaction to sea food for the first time at the age of 50 and . On my interview she said she had a dental work done in the past week and her pain was so bad that she was taking over the counter ibuprofen, advil and tylenol. She was also having subjective fevers and chills at home. She was constipated so started taking a probiotic also. Then 2 days ago she woke up with her right back pain which then spread to the left. The pain was sharp and constantly present. then the pain moved to the right flank and right lower quadrant. The back pain was worse with movement like sitting up. She also complained of burning with urine however she is uncertain if this is new as she has frequent BVs so often has burning. In [facility] ED she was noted to be tachycardic but was afebrile. There was no signs of any angioedema or urticaria suggestive of a medication allergic reaction. Her labs did show a WBC of 19K. CT abdmen and pelvis showed subtle perinephric stranding of fat on the right suggesting right-sided pyelonephritis. She was admitted for Pyelonephritis. During my interview she was very emotional and anxious and crying and requesting if a family member could stay with her. Home Medications Scheduled Chlorhexidine Gluconate (Peridex) 473 Ml Mouthwash, 15 ML SSP BID, (Reported) Lactobacillus Acidophilus (Probiotic) 1 Each Capsule, 1 CAP PO DAILY, (Reported) Miscellaneous Medications Nitrofurantoin Monohyd/M-Cryst (Nitrofurantoin Kent-Mcr 100 mg) 100 Mg Capsule, (Reported) Phenazopyridine HCl (Phenazopyridine HCl) 200 Mg Tablet, (Reported) Allergies Coded Allergies: No Known Allergies (Unverified , 06/02/08) Past Medical History Medical History Asthma MIGRAINE GERD ADD FREQUENT UTIS W/PYELONEPHRITIS X1 FX RIGHT ANKLE, JAN 2012, ACCIDENTAL FALL HX DEPRESSION/ANXIETY Family History Significant Family History: Cancer (colon cancer paternal grand mother, breast cancer paternal great aunt.) Mother from allergic reaction to sea food. Social History * Smoker: current smoker Drugs: denies A-FIB/CHADSVASC A-FIB History Current/History of A-Fib/PAF?: No Review of Systems Constitutional: Reports: Chills, Fever ENT: Reports: Sore Throat, Other Symptoms (dental pain) Skin: Denies: Rash, Lesions, Breakdown Pulmonary: Denies: Dyspnea, Cough Cardiovascular: Reports: Palpitations, Lt Headedness; Denies: Chest Pain, Orthopnea, Paroxysmal Noc. Dyspnea Gastrointestinal: Reports: Abdominal Pain, Constipation Genitourinary: Reports: Dysuria Hematologic: Denies: Bruising, Bleeding Excessively Musculoskeletal: Reports: Back Pain Psych: Reports: Anxiety Physical Examination General Exam: Positive: Alert, Cooperative, No Acute Distress, Other (very anxious and crying) Eye Exam: Positive: PERRLA, Conjunctiva & lids normal, EOMI; Negative: Sclera icteric ENT Exam: Positive: Atraumatic, Mucous membr. moist/pink, Pharynx Normal Neck Exam: Positive: Supple; Negative: JVD, thyromegaly Chest Exam: Positive: Clear to auscultation, Normal air movement Heart Exam: Positive: Tachycardic, Regular Rhythm, Normal S1, Normal S2; Negative: Murmurs, Rubs Abdomen Exam: Positive: Normal bowel sounds, Soft, Tenderness (in both the illiac fossa.), Other (severe bilateral CVA angle tenderness); Negative: Hepatospenomegaly Extremity Exam: Positive: Normal pulses; Negative: Clubbing, Cyanosis, Edema Skin Exam: Positive: Nl turgor and temperature; Negative: Breakdown, Lesion Neuro Exam: Positive: Normal Speech, Cranial Nerves 3-12 NL, Reflexes 2+ Psych Exam: Positive: Anxiety, Memory Intact, Oriented x 3 Vital Signs Vital Signs Date Time Temp Pulse Resp B/P (MAP) Pulse Ox O2 Delivery O2 Flow Rate FiO2 11/18/19 14:50 11/18/19 14:30 Room Air 11/18/19 14:08 97.6 56 20 99 Laboratory Data Labs 24H Laboratory Tests 2 11/18/19 14:58: POC Beta HCG, Quantitative < 5.0 11/18/19 14:59: Immature Granulocyte % (Auto) 1.0, Neutrophils (%) (Auto) 82.0H, Lymphocytes (%) (Auto) 9.5L, Monocytes (%) (Auto) 7.1H, Eosinophils (%) (Auto) 0.1, Basophils (%) (Auto) 0.3, Neutrophils # (Auto) 16.3H, Lymphocytes # (Auto) 1.9, Monocytes # (Auto) 1.4H, Eosinophils # (Auto) 0.0, Basophils # (Auto) 0.1, Nucleated Red Blood Cells % (auto) 0.0, Total Bilirubin 0.9, Direct Bilirubin 0.3H, Aspartate Amino Transf (AST/SGOT) 14, Alanine Aminotransferase (ALT/SGPT) 35, Alkaline Phosphatase 84, Total Protein 7.1, Albumin 3.7, Albumin/Globulin Ratio 1.1L, Amylase Level 39, Lipase 57L 11/18/19 15:01: Lactic Acid Level 0.9 11/18/19 15:16: POC Glucose (Misc Panel) 91, POC Sodium (Misc Panel) 138, POC Potassium (Misc Panel) 3.6, POC Chloride (Misc Panel) 98, POC Total CO2 (Misc Panel) 25.0, POC Blood Urea Nitrogen (Misc Panel 9, POC Ionized Calcium (Misc Panel) 4.7, POC Creatinine (Misc Panel) 0.5L, POC Hematocrit (Misc Panel) 57.0H CBC/BMP Laboratory Tests 11/18/19 14:59 Microbiology Microbiology 11/18/19 Blood Culture, Received Pending 11/18/19 Blood Culture, Received Pending Assessment/Plan 24 year old female with PMH of asthma as a child ADHD, anxiety has been having severe back pain for the past 2 days. She went to the urgent care today and had UA done which was dirty and was prescribed nitrofurantoin and pyridium. She took both the meds 1 each and after 30 mins started having diaphoresis, tingling of feet and right hand, felt like she was choking and could not swallow, racing heart rate felt she was having an allergic reaction so came to the ED for evaluation for drug reaction. She was very anxious as her mother had an allergic reaction to sea food for the first time at the age of 50 and . On my interview she said she had a dental work done in the past week and her pain was so bad that she was taking over the counter ibuprofen, advil and tylenol. She was also having subjective fevers and chills at home. She was constipated so started taking a probiotic also. Then 2 days ago she woke up with her right back pain which then spread to the left. The pain was sharp and constantly present. then the pain moved to the right flank and right lower quadrant. She also complained of burning with urine however she is uncertain if this is new as she has frequent BVs so often has burning. In [facility] ED she was noted to be tachycardic but was afebrile. There was no signs of any angioedema or urticaria suggestive of a medication allergic reaction. Her labs did show a WBC of 19K. CT abdmen and pelvis showed subtle perinephric stranding of fat on the right suggesting right- sided pyelonephritis. Pyelonephritis UA and culture sent from outpatient will give ceftriaxone, IVF pain control with toradol. Sepsis from pyelonephritis as above. Severe anxiety will give atarax prn constipation bowel regimen Plan / VTE VTE Prophylaxis Ordered?: Yes JANNY FLOOD MD November 18, 2019 16:12
[2019-11-18 18:35] VITALS: BP 128/86
[2019-11-18] MEDS ORDERED: DOCUSATE SODIUM 100 MG CAP PO SCH (21:00)
--- NOTE | 2019-11-19 08:57 | IPNPDOC ---
Text Note Date of Service The patient was seen on 11/19/19. NOTE Patient signed out AMA at 21.45 on 11/18/19 VS,Mariaelena, I+O VS, Mariaelena, I+O Laboratory Tests 11/18/19 14:59 Vital Signs Date Time Temp Pulse Resp B/P (MAP) Pulse Ox O2 Delivery O2 Flow Rate FiO2 11/18/19 18:35 100.9 132 19 128/86 (100) 99 Room Air I&O- Last 24 Hours up to 6 AM 11/19/19 06:00 Intake Total 2450 ml Balance 2450 ml JANNY FLOOD MD November 19, 2019 08:56
[2019-11-19] MEDS ORDERED: cefTRIAXone SOD 1 GM in D5W MINI-BAG PLUS 50 ML IV SCH (16:00)
== END 2019-11-18 21:45 | disposition left against medical advice (07) | DRG 463 ==
LOC: M ED 14:07 → M ED INP 16:51 → ENRESERV 17:32 → M MSPAV 18:31
PROVIDERS: ADMIT Internal Medicine Nephrology; ATTEND Internal Medicine Nephrology
DX: N10 Acute pyelonephritis (principal); F41.9 Anxiety disorder, unspecified; J45.909 Unspecified asthma, uncomplicated; G43.909 Migraine, unspecified, not intractable, without status migrainosus; K59.00 Constipation, unspecified; K21.9 Gastro-esophageal reflux disease without esophagitis; F17.200 Nicotine dependence, unspecified, uncomplicated; Z87.81 Personal history of (healed) traumatic fracture

== ENCOUNTER → 2019-11-18 | Outpatient (REF) | payer OTHER, MEDICAID ==
[~2019-11-18] MED LIST changes: +NITR100C2; +PERI0.126 SSP; +PHEN-501; +PROBCAP14 PO
[2019-11-18 11:46] LABS: AMORPHOUS SEDIMENT SMALL (NEGATIVE); APPEARANCE, URINE CLOUDY (CLEAR); BACTERIA, URINE AUTO 3+ (NEGATIVE); BILIRUBIN, URINE AUTO NEGATIVE (NEGATIVE); BLOOD, URINE BLOOD 2+ (NEGATIVE); COLOR, URINE YELLOW (YELLOW); GLUCOSE, URINE (UA) AUTO NEGATIVE (NEGATIVE); KETONE, URINE AUTO TRACE mg/dL (NEGATIVE); LEUKOCYTE ESTERASE, URINE AUTO 3+ (NEGATIVE); MUCUS, URINE SMALL (NEGATIVE); NITRITE, URINE AUTO POSITIVE (NEGATIVE); PROTEIN, URINE AUTO 2+ mg/dL (NEGATIVE); RBC, URINE AUTO 12 /HPF (0-3); SPECIFIC GRAVITY URINE AUTO 1.016 (1.002-1.035); SQUAMOUS EPITHELIAL CELL UR AU 1 /HPF (0-6); UROBILINOGEN, URINE AUTO 0.2 mg/dL (0.0-2.0); WBC, URINE AUTO TNTC /HPF (0-3)
== END ==
LOC: M LAB REF 11:26
PROVIDERS: ATTEND Physician Assistant Medical
DX: N39.0 Urinary tract infection, site not specified (principal)

== ENCOUNTER → 2020-01-08 | Outpatient (REF) | payer OTHER, MEDICAID ==
[~2020-01-08] MED LIST changes: +NITR100C2; +PERI0.126 SSP; +PHEN-501; +PROBCAP14 PO
[2020-01-09 18:50] LABS: CHLAMYDIA DNA AMPLIFICATION NEGATIVE (NEGATIVE); GC DNA AMPLIFICATION NEGATIVE (NEGATIVE)
== END ==
LOC: M SFHCLERA 17:10
PROVIDERS: ATTEND Physician Assistant
DX: R30.0 Dysuria (principal)

== ENCOUNTER → 2020-03-15 | Outpatient (REF) | payer MEDICAID, OTHER ==
[2020-03-15 17:19] LABS: APPEARANCE, URINE CLOUDY (CLEAR); BACTERIA, URINE AUTO NEGATIVE (NEGATIVE); BILIRUBIN, URINE AUTO NEGATIVE (NEGATIVE); BLOOD, URINE BLOOD 1+ (NEGATIVE); COLOR, URINE YELLOW (YELLOW); GLUCOSE, URINE (UA) AUTO NEGATIVE (NEGATIVE); KETONE, URINE AUTO NEGATIVE (NEGATIVE); LEUKOCYTE ESTERASE, URINE AUTO NEGATIVE (NEGATIVE); MUCUS, URINE SMALL (NEGATIVE); NITRITE, URINE AUTO NEGATIVE (NEGATIVE); PROTEIN, URINE AUTO NEGATIVE (NEGATIVE); RBC, URINE AUTO 1 /HPF (0-3); SPECIFIC GRAVITY URINE AUTO 1.013 (1.002-1.035); SQUAMOUS EPITHELIAL CELL UR AU 24 /HPF (0-6); UROBILINOGEN, URINE AUTO 0.2 mg/dL (0.0-2.0); WBC, URINE AUTO 6 /HPF (0-3)
[2020-03-20 15:33] LABS: CHLAMYDIA DNA AMPLIFICATION NEGATIVE (NEGATIVE); GC DNA AMPLIFICATION NEGATIVE (NEGATIVE)
== END ==
LOC: M LAB REF 16:11
PROVIDERS: ATTEND Physician Assistant
DX: N39.0 Urinary tract infection, site not specified (principal)

== ENCOUNTER 2020-08-03 18:43 | Emergency (ER) | payer MEDICAID ==
[~2020-08-03] VITALS: Ht 165.1 cm; Wt 111.1 kg
[2020-08-03 18:43] VITALS: BP 135/95
[~2020-08-03 18:43] MED LIST changes: -MECL12.589 PO; +MECL12.590 PO
--- NOTE | 2020-08-06 09:43 | REP ---
INDICATION: fall injury. COMPARISON: None. TECHNIQUE: CT cervical spine performed in the axial plane, with sagittal and coronal reconstruction images performed. FINDINGS: There is no acute compression fracture or malalignment. There is no prevertebral soft tissue swelling. Disc spaces are well preserved. There is normal cervical lordosis. There is no abnormal density in the spinal canal. IMPRESSION: No evidence of acute fracture or dislocation.A preliminary report was provided by [facility] at the time of the exam. <Electronically signed by Óscar Diaz > 08/06/20 0910
--- NOTE | 2020-08-06 09:44 | REP ---
INDICATION: fall injury. Repeat dictation. Preliminary report is provided at the time of the exam by mica MARIANO. COMPARISON: Comparison head CT study 14 August 2017.. TECHNIQUE: Helical scanning is acquired. 5 mm axial images were reformatted. Coronal MPR images were generated. FINDINGS: Bone window settings demonstrate an intact bony calvarium. There is no evidence of skull fracture or incidental bony calvarial lesion. The visualized paranasal sinuses appear clear. No intraorbital abnormality is seen. On soft tissue window setting images; the lateral, third, and fourth ventricles are normal in size and position. Diaz-white differentiation pattern is normal above and below the tentorium. There are is no evidence of intracranial hemorrhage. No mass, edema, infarction, or midline shift is seen. No extra-axial fluid collection is appreciated. IMPRESSION: Negative noncontrast head CT. <Electronically signed by Rosalio Maher > 08/06/20 0940
== END 2020-08-03 20:50 | disposition left against medical advice (07) ==
LOC: M ED 18:43
DX: Z53.21 Procedure and treatment not carried out due to patient leaving prior to being seen by health care provider (principal)

== ENCOUNTER 2022-09-23 04:06 | Emergency (ER) | payer MEDICAID ==
[~2022-09-23] VITALS: Ht 165.1 cm; Wt 96.5 kg
[~2022-09-23 04:06] MED LIST changes: +MECL-136 PO; -MECL12.590 PO
[2022-09-23 04:07] VITALS: BP 121/87
[2022-09-23] MEDS ORDERED: DOXY-444 PO (04:12)
== END 2022-09-23 07:00 | disposition left against medical advice (07) ==
LOC: M ED 04:06
DX: Z53.21 Procedure and treatment not carried out due to patient leaving prior to being seen by health care provider (principal)

== ENCOUNTER 2023-01-08 22:09 | Inpatient (IN) | payer MEDICAID ==
[~2023-01-08] VITALS: Ht 165.1 cm; Wt 93.2 kg
[~2023-01-08 22:09] MED LIST changes: +DOXY-444 PO
[2023-01-08 23:24] LABS: BASO # 0.1 10^3/uL (0.0-0.2); BASO % 0.5 % (0.0-1.0); EOS % 0.1 % (0.0-3.0); HEMATOCRIT 43.6 % (36.0-47.0); HEMOGLOBIN 14.6 g/dl (12.0-15.5); LYMPH % 9.6 % (24.0-44.0); MEAN CORPUSCULAR HEMOGLOBIN 28.4 pg (27.0-33.0); MEAN CORPUSCULAR HGB CONC 33.5 g/dl (32.0-36.5); MEAN CORPUSCULAR VOLUME 84.8 fl (80.0-96.0); MONO # 1.3 10^3/uL (0.0-0.8); MONO % 6.4 % (2.0-8.0); NEUTROPHILS # 17.3 10^3/uL (1.5-8.5); NEUTROPHILS % 82.9 % (36.0-66.0); RED BLOOD COUNT 5.14 10^6/uL (4.00-5.40); WHITE BLOOD COUNT 20.8 10^3/uL (4.0-10.0)
[2023-01-08 23:26] LABS: APPEARANCE, URINE CLOUDY (CLEAR); BACTERIA, URINE AUTO 1+ (NEGATIVE); BILIRUBIN, URINE AUTO NEGATIVE (NEGATIVE); BLOOD, URINE BLOOD 2+ (NEGATIVE); COLOR, URINE AMBER (YELLOW); GLUCOSE, URINE (UA) AUTO NEGATIVE (NEGATIVE); KETONE, URINE AUTO TRACE mg/dL (NEGATIVE); LEUKOCYTE ESTERASE, URINE AUTO NEGATIVE (NEGATIVE); MUCUS, URINE SMALL (NEGATIVE); NITRITE, URINE AUTO NEGATIVE (NEGATIVE); PROTEIN, URINE AUTO 2+ mg/dL (NEGATIVE); RBC, URINE AUTO 3 /HPF (0-3); SQUAMOUS EPITHELIAL CELL UR AU 12 /HPF (0-6); UROBILINOGEN, URINE AUTO 0.2 mg/dL (0.0-2.0); WBC, URINE AUTO 7 /HPF (0-3)
[2023-01-08 23:27] LABS: PLATELET COUNT, AUTOMATED 36 10^3/uL (150-450)
[2023-01-08 23:45] LABS: LIPASE 25 U/L (12-53)
[2023-01-08 23:56] LABS: ALBUMIN 3.5 G/DL (3.2-5.2); ALKALINE PHOSPHATASE 98 U/L (46-116); ALT/SGPT 19 U/L (7.0-40); AST/SGOT 26 U/L (<34); BILIRUBIN,DIRECT 0.2 MG/DL (<0.4); BILIRUBIN,TOTAL 0.7 MG/DL (0.3-1.2); BLOOD UREA NITROGEN 14 MG/DL (9-23); CALCIUM LEVEL 9.1 MG/DL (8.5-10.1); CARBON DIOXIDE LEVEL 22 MMOL/L (20-31); CHLORIDE LEVEL 103 MMOL/L (98-107); CREATININE FOR GFR 0.65 MG/DL (0.55-1.30); GLOMERULAR FILTRATION RATE > 60.0 (>60); GLUCOSE, FASTING 130 MG/DL (60-100); POTASSIUM SERUM 4.1 MMOL/L (3.5-5.1); SODIUM LEVEL 135 MMOL/L (136-145); TOTAL PROTEIN 7.2 G/DL (5.7-8.2)
[2023-01-09] MEDS ORDERED: NS 1,000 ML IV ONE ×2 (01:20→05:15)
[2023-01-09] MEDS ORDERED: ONDANSETRON 4MG 2ML VIAL IV ONE (01:20)
[2023-01-09] MEDS ORDERED: MORPHINE 4 MG/ML 1ML VIAL IV ONE (01:20)
[2023-01-09] MEDS ORDERED: PIPERACILLIN/TAZOBACTAM SOD 4.5 GM in D5W MINI-BAG PLUS 50 ML IV ONE (01:45)
[2023-01-09] MEDS ORDERED: VANCOMYCIN HCL 1,500 MG in IV FLUID PLACE HOLDER 1 EA IV ONE (01:45)
[2023-01-09] MEDS ORDERED: IBUP1TAB7 PO (02:11)
[2023-01-09] MEDS ORDERED: HOME MED LIST COMPLETE! XX SCH (02:15)
[2023-01-09 02:49] LABS: RSV AMPLIFICATION NEGATIVE (NEGATIVE)
[2023-01-09] MEDS ORDERED: VANCOMYCIN HCL 750 MG, VIAL MATE ADAPTER 1 EACH in D5W 250 ML IV ONE ×6 (03:00)
[2023-01-09] MEDS ORDERED: VANCOMYCIN HCL 1,250 MG, VIAL MATE ADAPTER 1 EACH in NS 250 ML IV SCH (03:30)
[2023-01-09] MEDS ORDERED: DOXYCYCLINE HYCLATE 100MG TABLET PO ONE (04:00)
[2023-01-09 04:25] VITALS: BP 94/56; TEMP 102.3; O2SAT 97
[2023-01-09] MEDS ORDERED: ACETAMINOPHEN TAB 650MG DOSE (2X325MG) PO PRN (05:00)
[2023-01-09] MEDS ORDERED: KETOROLAC 30 MG/ML 1ML VIAL IV PRN (05:00)
[2023-01-09 05:10] LABS: HEMATOCRIT 37.9 % (36.0-47.0); HEMOGLOBIN 12.8 g/dl (12.0-15.5); MEAN CORPUSCULAR HEMOGLOBIN 28.8 pg (27.0-33.0); MEAN CORPUSCULAR HGB CONC 33.8 g/dl (32.0-36.5); MEAN CORPUSCULAR VOLUME 85.2 fl (80.0-96.0); RED BLOOD COUNT 4.45 10^6/uL (4.00-5.40); WHITE BLOOD COUNT 21.2 10^3/uL (4.0-10.0)
[2023-01-09 05:43] LABS: PLATELET COUNT, AUTOMATED 229 10^3/uL (150-450)
[2023-01-09] MEDS ORDERED: NS 1,000 ML IV SCH (05:45)
[2023-01-09 06:00] VITALS: TEMP 101.2
[2023-01-09 06:10] LABS: ALBUMIN 3.1 G/DL (3.2-5.2); ALKALINE PHOSPHATASE 88 U/L (46-116); ALT/SGPT 17 U/L (7.0-40); AST/SGOT 12 U/L (<34); BILIRUBIN,TOTAL 0.7 MG/DL (0.3-1.2); BLOOD UREA NITROGEN 11 MG/DL (9-23); CALCIUM LEVEL 8.1 MG/DL (8.5-10.1); CARBON DIOXIDE LEVEL 26 MMOL/L (20-31); CHLORIDE LEVEL 103 MMOL/L (98-107); CREATININE FOR GFR 0.61 MG/DL (0.55-1.30); GLOMERULAR FILTRATION RATE > 60.0 (>60); GLUCOSE, FASTING 104 MG/DL (60-100); POTASSIUM SERUM 3.3 MMOL/L (3.5-5.1); SODIUM LEVEL 135 MMOL/L (136-145); TOTAL PROTEIN 6.3 G/DL (5.7-8.2)
[2023-01-09 06:28] VITALS: BP 101/62; TEMP 99.7
[2023-01-09] MEDS ORDERED: PIPERACILLIN/TAZOBACTAM SOD 3.375 GM in D5W MINI-BAG PLUS 50 ML IV SCH (07:00)
[2023-01-09] MEDS: VANCOMYCIN HCL 1,000 MG, VIAL MATE ADAPTER 1 EACH in D5W 250 ML IV SCH ×2 (07:54→16:00)
[2023-01-09] MEDS ORDERED: POTASSIUM CHLORIDE 10MEQ SR TABLET PO ONE (08:00)
[2023-01-09] MEDS: PIPERACILLIN/TAZOBACTAM SOD 4.5 GM in D5W MINI-BAG PLUS 50 ML IV SCH ×3 (09:00→20:03)
[2023-01-09] MEDS ORDERED: LIDOCAINE W/EPINEPHRINE 1% 20ML VIAL SC ONE (12:15)
[2023-01-09 14:00] VITALS: BP 94/50; TEMP 96.6; O2SAT 96
[2023-01-09] MEDS: NS 1,000 ML IV SCH (15:50)
[2023-01-09] MEDS ORDERED: DOXYCYCLINE HYCLATE 100MG TABLET PO SCH (18:00)
[2023-01-09 20:00] VITALS: BP 92/49; TEMP 100.5; O2SAT 97
[2023-01-09] MEDS ORDERED: NS 500 ML IV ONE (21:45)
[2023-01-10] MEDS: VANCOMYCIN HCL 1,000 MG, VIAL MATE ADAPTER 1 EACH in D5W 250 ML IV SCH (00:49)
[2023-01-10] MEDS: NS 1,000 ML IV SCH (02:19)
[2023-01-10] MEDS ORDERED: NS 500 ML IV ONE (03:10)
[2023-01-10] MEDS: PIPERACILLIN/TAZOBACTAM SOD 4.5 GM in D5W MINI-BAG PLUS 50 ML IV SCH (03:25)
[2023-01-10 04:01] LABS: HEMATOCRIT 37.3 % (36.0-47.0); HEMOGLOBIN 12.1 g/dl (12.0-15.5); MEAN CORPUSCULAR HEMOGLOBIN 28.4 pg (27.0-33.0); MEAN CORPUSCULAR HGB CONC 32.4 g/dl (32.0-36.5); MEAN CORPUSCULAR VOLUME 87.6 fl (80.0-96.0); PLATELET COUNT, AUTOMATED 147 10^3/uL (150-450); RED BLOOD COUNT 4.26 10^6/uL (4.00-5.40); WHITE BLOOD COUNT 17.4 10^3/uL (4.0-10.0)
[2023-01-10 04:14] LABS: ALBUMIN 2.9 G/DL (3.2-5.2); ALKALINE PHOSPHATASE 93 U/L (46-116); ALT/SGPT 15 U/L (7.0-40); AST/SGOT 11 U/L (<34); BILIRUBIN,TOTAL 0.6 MG/DL (0.3-1.2); BLOOD UREA NITROGEN < 5 MG/DL (9-23); CALCIUM LEVEL 8.1 MG/DL (8.5-10.1); CARBON DIOXIDE LEVEL 25 MMOL/L (20-31); CHLORIDE LEVEL 110 MMOL/L (98-107); CREATININE FOR GFR 0.62 MG/DL (0.55-1.30); GLOMERULAR FILTRATION RATE > 60.0 (>60); GLUCOSE, FASTING 114 MG/DL (60-100); POTASSIUM SERUM 3.7 MMOL/L (3.5-5.1); SODIUM LEVEL 142 MMOL/L (136-145); TOTAL PROTEIN 6.1 G/DL (5.7-8.2)
[2023-01-10 05:59] VITALS: TEMP 96.2
[2023-01-10 06:00] VITALS: BP 100/52; TEMP 97.9; O2SAT 98
[2023-01-10 08:03] LABS: VANCOMYCIN LEVEL TROUGH 11.1 UG/ML (10.0-20.0)
[2023-01-10 08:06] LABS: ALBUMIN 2.6 G/DL (3.2-5.2); ALKALINE PHOSPHATASE 92 U/L (46-116); ALT/SGPT 17 U/L (7.0-40); AST/SGOT 11 U/L (<34); BILIRUBIN,TOTAL 0.7 MG/DL (0.3-1.2); BLOOD UREA NITROGEN 8 MG/DL (9-23); CALCIUM LEVEL 7.8 MG/DL (8.5-10.1); CARBON DIOXIDE LEVEL 24 MMOL/L (20-31); CHLORIDE LEVEL 111 MMOL/L (98-107); CREATININE FOR GFR 0.67 MG/DL (0.55-1.30); GLOMERULAR FILTRATION RATE > 60.0 (>60); GLUCOSE, FASTING 100 MG/DL (60-100); POTASSIUM SERUM 3.7 MMOL/L (3.5-5.1); SODIUM LEVEL 144 MMOL/L (136-145); TOTAL PROTEIN 5.6 G/DL (5.7-8.2)
[2023-01-10 08:18] VITALS: BP 112/71; TEMP 98.1; O2SAT 95
[2023-01-10] MEDS ORDERED: LIDOCAINE W/EPINEPHRINE 1% 20ML VIAL SC ONE (09:00)
[2023-01-10] MEDS ORDERED: BACT800T5 PO (15:28)
[2023-01-10] MEDS ORDERED: DOXY-444 PO (15:32)
== END 2023-01-10 08:47 | disposition left against medical advice (07) | DRG 720 ==
LOC: M ED 22:09 → M ED INP 01-09 03:26 → M MSPAV 01-09 04:23
PROVIDERS: ADMIT Internal Medicine; ATTEND Internal Medicine
DX: A41.9 Sepsis, unspecified organism (principal); D69.6 Thrombocytopenia, unspecified; L03.113 Cellulitis of right upper limb; F17.200 Nicotine dependence, unspecified, uncomplicated; M54.50 Low back pain, unspecified; R31.29 Other microscopic hematuria; K80.20 Calculus of gallbladder without cholecystitis without obstruction; E87.6 Hypokalemia

== ENCOUNTER 2024-02-10 00:11 | Emergency (ER) | payer MEDICAID ==
[~2024-02-10] VITALS: Ht 165.1 cm; Wt 95.8 kg
[2024-02-10 00:11] VITALS: BP 116/78; TEMP 98.8; O2SAT 97
[~2024-02-10 00:11] MED LIST changes: +BACT800T5 PO; +DOXY-440 PO; -DOXY-444 PO; +IBUP1TAB7 PO; +ONDA-282 PO; -ONDA4TAB6 PO
== END 2024-02-10 00:33 | disposition left against medical advice (07) ==
LOC: M ED 00:11
DX: Z53.21 Procedure and treatment not carried out due to patient leaving prior to being seen by health care provider (principal)

== ENCOUNTER → 2024-05-10 | Outpatient (CLI) | payer MEDICAID | LOC: M SOG 09:54 | PROVIDERS: ATTEND Physician Assistant | DX: M79.645 Pain in left finger(s) (principal) ==

== ENCOUNTER → 2024-05-12 | Outpatient (CLI) | payer MEDICAID, OTHER | LOC: M SOG 10:51 | PROVIDERS: ATTEND Physician Assistant | DX: M79.645 Pain in left finger(s) (principal) ==

== ENCOUNTER 2024-05-25 10:33 | Day surgery (SDC) | payer OTHER ==
[~2024-05-25] VITALS: Ht 165.1 cm; Wt 101.2 kg
[2024-05-25] MEDS ORDERED: propofoL 200 MG/20 ML VIAL As Ordered ONE (11:09)
[2024-05-25] MEDS ORDERED: fentaNYL 100 MCG/2 ML INJECTION As Ordered ONE (11:09)
[2024-05-25] MEDS ORDERED: ROCURONIUM BROMIDE 50MG/5ML VIAL As Ordered ONE (11:09)
[2024-05-25] MEDS ORDERED: MIDAZOLAM INJ 2MG/2ML VIAL As Ordered ONE (11:09)
[2024-05-25] MEDS ORDERED: ONDANSETRON 4MG 2ML VIAL As Ordered ONE (11:09)
[2024-05-25] MEDS ORDERED: LIDOCAINE 2% 100MG/5ML SDV (FOR ANES.) As Ordered ONE (11:10)
[2024-05-25] MEDS: ceFAZolin 2 GM/D5W 50 ML IV BAG As Ordered ONE (14:48)
[2024-05-25] MEDS ORDERED: ACETAMINOPHEN 1000MG/100ML IV BAG As Ordered ONE (14:51)
[2024-05-25] MEDS ORDERED: KETAMINE HCL 200MG/20ML VIAL As Ordered ONE (14:53)
[2024-05-25] MEDS ORDERED: GLYCOPYRROLATE INJ 0.2 MG/ML 2 ML VIAL As Ordered ONE (14:55)
[2024-05-25] MEDS ORDERED: ESMOLOL INJ 100MG/10ML VIAL As Ordered ONE (15:12)
[2024-05-25] MEDS: ceFAZolin SOD 2 GM in IV 1 EA IV ONE (15:21)
[2024-05-25] MEDS ORDERED: SEVOFLURANE INHAL SOLN 250 ML BTL As Ordered ONE (15:37)
[2024-05-25] MEDS: BACITRACIN OINTMENT 30GM TUBE As Ordered ONE (15:57)
[2024-05-25] MEDS ORDERED: METOCLOPRAMIDE INJ 10MG/2ML VIAL IV PRN (16:15)
[2024-05-25] MEDS ORDERED: MEPERIDINE 25 MG/ML 1ML VIAL IV PRN (16:15)
[2024-05-25] MEDS ORDERED: fentaNYL 100 MCG/2 ML INJECTION IV PRN (16:15)
[2024-05-25] MEDS ORDERED: diphenhydrAMINE 50MG/ML VIAL IV PRN (16:15)
[2024-05-25] MEDS ORDERED: PERCOCET PO (16:18)
[2024-05-25] MEDS: oxyCODONE 5MG TAB PO PRN (16:26)
[2024-05-25] MEDS: HYDROMORPHONE HCL 0.5 MG/ 0.5 ML SYRINGE IV PRN (16:26)
[2024-05-25] MEDS: ONDANSETRON 4MG 2ML VIAL IV PRN (16:27)
[2024-05-25 17:10] VITALS: BP 115/59; TEMP 97.2; O2SAT 95
== END 2024-05-25 17:42 | disposition home or self-care (01) ==
LOC: M SDC 10:33
PROVIDERS: ATTEND Orthopaedic Surgery Hand Surgery
DX: M24.445 Recurrent dislocation, left finger (principal); F17.210 Nicotine dependence, cigarettes, uncomplicated
CPT/HCPCS: 26785; 76000; 81025; J0131; J0665; J0690; J1100; J1171; J1596; J1805; J2250; J2405; J3010

== ENCOUNTER → 2024-06-06 | Outpatient (CLI) | payer OTHER ==
[~2024-06-06] MED LIST changes: +PERCOCET PO
== END ==
LOC: M SOG 07:53
PROVIDERS: ATTEND Physician Assistant
DX: M79.645 Pain in left finger(s) (principal)

== ENCOUNTER → 2024-06-20 | Outpatient (CLI) | payer OTHER | LOC: M SOG 07:52 | PROVIDERS: ATTEND Physician Assistant | DX: Z53.9 Procedure and treatment not carried out, unspecified reason (principal) ==

== ENCOUNTER → 2024-07-07 | Outpatient (CLI) | payer OTHER | LOC: M SOG 07:58 | PROVIDERS: ATTEND Physician Assistant | DX: M79.645 Pain in left finger(s) (principal) ==

== ENCOUNTER → 2024-07-08 | Outpatient (CLI) | payer OTHER | LOC: M SOG 13:01 | PROVIDERS: ATTEND Physician Assistant | DX: M79.645 Pain in left finger(s) (principal) ==

== ENCOUNTER → 2024-08-08 | Outpatient (CLI) | payer OTHER | LOC: M SOG 07:54 | PROVIDERS: ATTEND Physician Assistant | DX: M79.645 Pain in left finger(s) (principal) ==